=== PATIENT | female | born 1965 | race Caucasian/White ===

== ENCOUNTER → 2016-12-17 | Outpatient (CLI) | payer BC ==
[2016-12-17 15:09] LABS: AMPHETAMINE SCREEN NEGATIVE (NEG); CANNABINOID SCREEN,URINE NEGATIVE (NEG); COCAINE SCREEN NEGATIVE (NEG); METHADONE URINE SCREEN NEGATIVE (NEG); METHAMPHETAMINES SCREEN,URINE NEGATIVE (NEG); OPIATE SCREEN,URINE POSITIVE (NEG); URINE SAMPLE TYPE CLEAN CATCH URINE; URINE SPECIFIC GRAVITY - MAN 1.009
== END ==
LOC: LAB 09:07
PROVIDERS: ATTEND Physician Assistant Medical
DX: G89.21 Chronic pain due to trauma (principal)
CPT/HCPCS: 80305

== ENCOUNTER → 2017-04-04 | Outpatient (CLI) | payer BC ==
--- NOTE | 2017-04-04 11:18 | DI ---
CT ABDOMEN SCAN WITH IV CONTRAST, 04/04/2017 9:41 AM : Clinical History: Malignant neoplasm of the cervix. Previous Exam: None at this facility. Scans are performed from the lower lung bases through the liver and kidneys with IV contrast. 75 ml o f Isovue 300 was injected IV. No oral or rectal contrast was ordered. The lung bases are clear. The liver is enlarged but otherwise is unremarkable. The patient is status post cholecystectomy and the common bile duct measures 8 mm. There is no abnormality of the spleen, p ancreas, and adrenal glands. Both kidneys are normal in size, shape, position and contour. There is n o hydronephrosis or hydroureter. No renal or ureteral calculi are present. There are no abnormal retr ocrural or periaortic nodes. No ascites is present. READING: Hepatomegaly. The study is otherwise normal. CT PELVIS SCAN WITH IV CONTRAST, 04/04/2017 9:41 AM: Clinical History: See above. Previous Exam: None at this facility. Scans are performed from just superior to the umbilicus to the symphysis pubis with IV contrast. This is the same bolus of contrast used for the CT scans of the abdomen. Scans through the lower abdomen and pelvis show no masses or abnormal fluid collections. There is no adenopathy. The appendix is normal. The small bowel, terminal ileum, and ileocecal valve are normal. The colon is also normal. There are no hernias. The uterus is either markedly atrophic measuring only 3 x 5 x 3 mm in AP, transverse, and longitudinal measurements, or this is a very prominent vaginal c uff. Neither ovary is visualized with certainty. READING: The uterus is either markedly atrophic or there is a prominent vaginal cuff following hysterectomy. N either ovary is visualized. The remainder the study is normal.
== END ==
LOC: CT 09:37 → LAB 09:37
PROVIDERS: ATTEND Obstetrics & Gynecology
DX: C53.9 Malignant neoplasm of cervix uteri, unspecified (principal); Z98.890 Other specified postprocedural states
CPT/HCPCS: 36415; 74177; 82565; 84520

== ENCOUNTER → 2017-04-08 | Outpatient (CLI) | payer BC ==
[2017-04-08 14:29] LABS: BLOOD UREA NITROGEN 7 mg/dL (7-22); BUN/CREATININE RATIO 11.66 (6-20); CALCIUM 9.7 mg/dL (8.7-10.7); EST GLOMERULAR FILTRATION > 60 (>60 ml/min/1.73m(2)); SERUM ALBUMIN 4.2 g/dL (3.5-4.8)
--- NOTE | 2017-04-08 14:59 | EKG ---
[address] [address] Measurements Intervals [place] Rate: 70 P: -17 DC: 145 QRS: 11 QRSD: 97 T: 46 QT: 394 QTc: 415 Interpretive Statements SINUS RHYTHM No previous ECG available for comparison Electronically Signed On 04-11-17 07:55:04 MDT by Dewey Desai MD [email or web address]
[2017-04-08 15:32] LABS: HEMATOCRIT 45.8 % (37.0-47.0); HEMOGLOBIN 15.6 g/dL (12.0-16.0); RED BLOOD COUNT 5.08 10^6/uL (4.20-5.40)
[2017-04-08 15:33] LABS: MEAN CORPUSCULAR HEMOGLOBIN 30.7 PG (27-31); MEAN CORPUSCULAR HGB CONC 34.1 g/dL (33-37); MEAN CORPUSCULAR VOLUME 90.2 FL (81-99); MEAN PLATELET VOLUME 9.8 FL (7.4-12.2)
--- NOTE | 2017-04-08 19:25 | DI ---
PA /LATERAL CHEST X-RAY, 04/08/2017 12:40 PM : Clinical History: Preoperative exam. The patient has cervical cancer. Previous Exam: None at this facility. There is no acute soft tissue or bony abnormality. Heart size is normal. Lungs are clear. Mediastinal structures are normal. There are no pulmonary nodules. There is an artifact over the right lateral c hest wall that is not visible on the lateral projection. Reading: Normal chest x-ray.
== END ==
LOC: LAB 13:16
PROVIDERS: ATTEND Obstetrics & Gynecology Gynecologic Oncology
DX: Z01.812 Encounter for preprocedural laboratory examination (principal); Z01.810 Encounter for preprocedural cardiovascular examination; Z01.818 Encounter for other preprocedural examination; C53.0 Malignant neoplasm of endocervix
CPT/HCPCS: 36415; 71020; 80048; 80076; 85027; 93005; 93010